=== PATIENT | male | born 1980 | race Caucasian/White ===

== ENCOUNTER 2023-11-07 04:46 | Day surgery (SDC) | payer OTHER ==
[2023-11-05 12:02] VITALS: BMI 33.6
[2023-11-07] MEDS ORDERED: CEFAZOLIN SODIUM 2 GM VIAL ONE ×2 (08:05→08:06)
[2023-11-07 08:40] VITALS: TEMP 97.3
[2023-11-07 09:07] VITALS: BP 119/77; PULSE 57; RESP 14
== END 2023-11-07 09:26 | disposition home or self-care (01) ==
LOC: JASU-ENDO 04:46
PROVIDERS: ATTEND Internal Medicine Gastroenterology
PROC: 0DB98ZX Excision of Duodenum, Via Natural or Artificial Opening Endoscopic, Diagnostic (ICD-10-PCS; 2023-11-07)
PROC: 0DB78ZX Excision of Stomach, Pylorus, Via Natural or Artificial Opening Endoscopic, Diagnostic (ICD-10-PCS; 2023-11-07)
PROC: 0DB68ZX Excision of Stomach, Via Natural or Artificial Opening Endoscopic, Diagnostic (ICD-10-PCS; 2023-11-07)
PROC: 0DBK8ZX Excision of Ascending Colon, Via Natural or Artificial Opening Endoscopic, Diagnostic (ICD-10-PCS; principal; 2023-11-07 08:00)
DX: K63.5 Polyp of colon (principal); K64.8 Other hemorrhoids; K29.50 Unspecified chronic gastritis without bleeding; B96.81 Helicobacter pylori [H. pylori] as the cause of diseases classified elsewhere; K21.00 Gastro-esophageal reflux disease with esophagitis, without bleeding; K44.9 Diaphragmatic hernia without obstruction or gangrene
CPT/HCPCS: 88305-TC; 88341-TC; 88342-TC

== ENCOUNTER 2024-10-28 04:37 | Emergency (ER) | payer OTHER ==
[2024-10-28 04:45] VITALS: BP 142/92; PULSE 67; RESP 18; TEMP 98; BMI 34.9
[2024-10-28] MEDS ORDERED: ACETAMINOPHEN INJECTION 100 ML ONE (05:25)
[2024-10-28] MEDS ORDERED: FAMOTIDINE 20 MG/50 ML IVPB 20 MG/50 ML MG IVPB ONE (05:25)
[2024-10-28] MEDS ORDERED: ONDANSETRON 4 MG/2 ML VIAL ONE (05:25)
[2024-10-28] MEDS: ONDANSETRON 4 MG/2 ML VIAL IVPUSH ONE (05:44)
[2024-10-28] MEDS: ACETAMINOPHEN 1000 MG/100 ML BAG IVPB ONE (05:44)
[2024-10-28] MEDS: FAMOTIDINE 20 MG/50 ML IVPB 20 MG/50 ML MG IVPB ONE (05:44)
[2024-10-28 06:14] LABS: POTASSIUM 4.2 mmol/L (3.5-5.1)
[2024-10-28 06:15] LABS: CALCIUM 8.8 mg/dL (8.5-10.1)
[2024-10-28 06:16] LABS: BLOOD UREA NITROGEN 16.9 mg/dL (7-18)
[2024-10-28 06:19] LABS: CREATININE 0.8 mg/dL (0.55-1.3)
[2024-10-28 06:21] LABS: BILIRUBIN,TOTAL 0.4 mg/dL (0.2-1); TOT PROT 7.9 g/dl (6.4-8.2)
[2024-10-28 06:36] LABS: EOS % 1.5 % (0-4.5); HEMATOCRIT 42.8 % (35.4-49); HEMOGLOBIN 13.9 GM/dL (11.7-16.9); LYMPH % 24.8 % (8-40); MCH 25.1 pg (25.7-33.7); MCHC 32.6 g/dl (32.0-35.9); MEAN CELL VOLUME 76.9 fl (80-96); MEAN PLT VOLUME 8.7 fl (7.5-11.1); MONO % 6.5 % (3.8-10.2); NEUT % 66.2 % (42.8-82.8); PLATELET COUNT 211 10^3/uL (134-434); RBC 5.56 M/mm3 (4.00-5.60); RDW 17.9 % (11.9-15.9); WHITE BLOOD COUNT 6.1 K/mm3 (4.0-10.0)
[2024-10-28 06:45] LABS: PH,URINE 5.5 (5.0-8.0); URINE APPEARANCE CLEAR; URINE BILIRUBIN NEGATIVE (NEGATIVE); URINE COLOR YELLOW; URINE GLUCOSE (UA) NEGATIVE (NEGATIVE); URINE KETONE NEGATIVE (NEGATIVE); URINE LEUK ESTERASE NEGATIVE (NEGATIVE); URINE NITRITE NEGATIVE (NEGATIVE); URINE PROTEIN NEGATIVE (NEGATIVE); URINE UROBILINOGEN 0.2 mg/dL (0.2-1.0)
[2024-10-28 12:36] LABS: HIV INTERPRETATION NEGATIVE (NEGATIVE)
== END 2024-10-28 10:17 | disposition home or self-care (01) ==
LOC: JER 04:37
PROC: 3E033GC Introduction of Other Therapeutic Substance into Peripheral Vein, Percutaneous Approach (ICD-10-PCS; principal; 2024-10-28)
PROC: 3E033NZ Introduction of Analgesics, Hypnotics, Sedatives into Peripheral Vein, Percutaneous Approach (ICD-10-PCS; 2024-10-28)
PROC: 3E033GC Introduction of Other Therapeutic Substance into Peripheral Vein, Percutaneous Approach (ICD-10-PCS; 2024-10-28)
DX: K80.20 Calculus of gallbladder without cholecystitis without obstruction (principal); R10.11 Right upper quadrant pain; R10.13 Epigastric pain; R11.0 Nausea
CPT/HCPCS: 36415; 76705-TC; 80053; 81003; 83690; 85025; 86803; 86850; 86900; 86901; 87086; 87389; 99285-25; J0131